=== PATIENT | female | born 1990 | race Caucasian/White ===

== ENCOUNTER 2022-10-02 08:00 | Outpatient (RCR) | payer MEDICAID, SELFPAY ==
--- NOTE | 2022-08-28 12:07 | OT.OPOE ---
OT Outpatient Ortho Eval OT Outpatient Ortho Eval Start: 08/28/22 11:20 Freq: Status: Active Protocol: Document 08/28/22 11:20 LCN (Rec: 08/28/22 11:59 LCN [id number]) E-signed By Deepali Bunn, OTR/L, CLT OT OP Ortho Eval Details Type Type Eval Complexity Low Insurance Information Insurance Information Medicaid Insurance Information Comments w U Care Outpatient History/Precautions Current Condition/Medical Diagnosis Referring Provider Sherri Jose PA-C Treatment Diagnosis B carpal tunnel syndrome with B wrist pain. L side more affected. Date of Onset 07/31/22 Medical Conditions Depression Other Conditions Anxiety, ADD, dyslipidemia, vag delivery, loss 2017. Obesity, LIO. No prior history of MVA or UE trauma. NO CTS during . Pt has oral medication to address posterior ocular edema with [facility] Dr Valdovinos (Pseudo Tumor Pupiloedema ) EMG of B UE completed at [facility] 07/12/22 with B medial nerve conduction for B UE. Displays entexted nerve reactivity to L median nerve peak latency. L UE EMG WNL. 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 Lives with 3 y/o son as single parent. (son is 35-40#) Mom lives with her, works as ethnology teacher in [employer]. 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 Used to have horses Fitness limited time, no regular regiemen Oriented Mental Status Comments Currently well managed with CHARANJIT, ADD, depression. Ortho Subjective Subjective Subjective mAara Calvo in an active, hard working 32 y/o female who has been struggling with neewer hand tingling since 6 months ago that was intermittent until the last 2 months, now daily. Evening are harder than am's and L side is more affected than R. Symptoms are somewhat better after changing clients, requiring less heavy lifting. Pain Assessment Pain Present Pain Present Pain Reported Location R wrist Description Dull, Achy,Cramping,Heaviness Intensity 1 L wrist Description Dull, Achy,Cramping,Heaviness Intensity 3 Goniometric Comments Goniometric Comments Goniometric Comments Posture-- Head forward w tightness, trigger points at B SCM, scalenes and upper trap hyperkyphotic at thoracic spine and lacking lumbar/ cervical lordosis. Thickness , congestion, poor skin mobility for B flexor muscle bulk. Cold hands, finger tips, resting in hooked flexion position. Very sensitive to cold in hands. Strong wide shoulder morphology. AROM-- Cerv EX to 40 of 80 ( lacking thoracic extension). Cerv fl to 50 of 60, pulling at T4 per myofascial thickness . Lateral flexion to 35 of 45 B, Rotation to 62 R and 75 L. Wrist EX to 77 of 80 R and 70 of 80 L. WR FL to [address] to 15 of 25 R, L 22 of 25. ( pn at 2/3rd MCP B). UD to 45 of 45 R and 42 of 45 L ( Tender at [employer]). Tight intrinsics during hook and table top positions. MMT -- B SH FL/ ABD/ER /IR, biceps/triceps/ WR FL/ WR EX all 5/5 B. 4+/5 resisted supination 4+/5 L. Lacking 15 degrees supination B, thick forearm bulk bulk. Spiritual Minister is 70# R and 60# L. (BNL by .5 SD L, where 68-78# is WNL) Beck pinch is 20# R and 21# L. 3 pt is 17# B Pinch planes are WNL. OT Objective Data Hand Hand Dominance Right Upper Extremity Special Tests Wrist Durkan's Test Positive Left,Positive Right Median Nerve-Carpal Tunnel Wrist Phalen Test Negative Left,Negative Right Wrist Tinel Test left Upper Extremity Special Tests Comments Comments 08/28/22-- Durkan's (+) at IF/ MF medial RF at 15 seconds, taking 20-30 to recover B. OT Problems Problems Problems Decreased Fine Motor,Lifting, Gripping,Pinching Other Problems Writing,Opening Containers, Dressing,Fasteners Patient Potential Excellent Assessment Assessment Assessment Given Amara's diagnosis of B mild carpal tunnel syndrome, she has postural and soft tissue changes, ?difficulty with edema, pain, ROM and strength loss of B hand/wrists and she would benefit from skilled OT to address these areas. Occupational Therapy Treatment Plan - OP Potential Rehabilitation Potential Excellent Set Goals Goals Set with Patient Yes Goals Goals In 8-10 weeks, Amara will demonstrate:? 1) Decreased pn to <2/10 80% of the time with sustained gripping, carrying groceries, pulling on socks, dressing/ bathing son. 2) I HEP for stretching, gradual strengthening and self mgmt strategies. 3) improved B qa consultant strength to 70# and pinch to 18# with B wrist pain < 1/10. 4)??Pt to be fit with functional bracing (for wrist) and use adaptive strategies to protect joint integrity to support less pain with ADL. Target Date 11/24/22 Progress set Treatment Plan Treatment Plan Evaluation,Edema Control, Iontophoresis,Joint Mobilization,Manual Therapy, Splinting,Ultrasound, Therapeutic Exercise,Self-Care /Home Management Expected Frequency 1-2x Week Expected Duration 8-10 Weeks Comment Summary Teach cervical posture - reducation, joint mechanics. Get new L splint. Certification Certification I Certify That: Therapy Services Provided, Therapy Plan Established, Therapy Plan Reviewed Recertification Information Recertification Information Initial Certification Date 08/28/22 Recertification Due Date 11/24/22 Provider Signature Shows Agreement With POC & Medical Necessity Physician Comment/Change Comment or Changes Physician NPI Number #
== END 2022-10-14 08:19 | disposition home or self-care (01) ==
PROVIDERS: PCP Family Medicine; Visit Provider Physician Assistant
DX: G56.03 Carpal tunnel syndrome, bilateral upper limbs (principal); M25.532 Pain in left wrist; M25.531 Pain in right wrist; Z51.89 Encounter for other specified aftercare
CPT/HCPCS: 97033; 97035; 97140; 97165; 97535

== ENCOUNTER 2022-12-16 09:22 | Outpatient (CLI) | payer MEDICAID, SELFPAY | END 2022-12-16 09:23 | disposition home or self-care (01) | LOC: NFLDREF 12:20 | PROVIDERS: PCP Family Medicine; Referring Provider Family Medicine; Visit Provider Family Medicine | DX: R53.83 Other fatigue (principal); E66.9 Obesity, unspecified; G93.2 Benign intracranial hypertension; E78.5 Hyperlipidemia, unspecified; E55.9 Vitamin D deficiency, unspecified; F32.A Depression, unspecified | CPT/HCPCS: 80053; 80061; 82306; 82607 ==

== ENCOUNTER 2023-12-10 08:00 | Outpatient (CLI) | payer MEDICAID, SELFPAY ==
--- OUTSIDE RECORDS SUMMARY | 2023-12-14 10:44 | XMS_ITS | Encounter Summary ---
Author Organization [facility] Address [address] [place] [address]. [place] [address] Care Team Providers Care Director Of Professional Services Name Role Phone Sheri Vargas Primary Care Provider Unav Luis Felipe Perrin MD Unavailable [phone] Luis Felipe Valdovinos MD Unavailable [phone] Yadira Rolon MD Primary Care Provider + Encounter Details Date Type Department Care Team (Late st Contact Info) Description 04/13/2021 [facility] [address] [place] [address] S[facility] Social History Tobacco Use Types Packs/Day Years Used Date Smoking Tobacco: Every Day Smokeless Tobacco: Never Alcohol Use Standard Drinks/Week Comments No 0 (1 standard drink = 0.6 oz pur e alcohol) PHQ-2 Answer Date Recorded PHQ-2 Score 0 03/09/2020 Sex and Gender Information Value Date Recorded Sex Assigned at Not on file Gender Identity Not on file Sexual Orientation Not on file documented as of this encounter Plan of Treatment Not on file documented as of this encounter Visit Diagnoses Not on filedocumented in this encounter Care Teams Director Of Professional Services Relationship Specialty Start Date End Date Sheri Vargas PCP - General 04/23/12 08/14/22 Yadira Rolon MD [facility] & [address] [id number] PCP - General 08/15/22 Luis Felipe Valdovinos MD [address] [place], [place] [phone] Assigned Surgical Provider 04/28/20 Luis Felipe Valdovinos MD [address] [place], [place] [phone] Assigned Surgical Provider 12/29/21 documented as of this encounter
--- OUTSIDE RECORDS SUMMARY | 2023-12-14 10:44 | XMS_ITS | Encounter Summary ---
Author Organization [facility] Address [address] [place] [address]. [place] [address] Care Team Providers Care Cath Lab Nurse Name Role Phone Sheri Vargas Primary Care Provider Mireyav Luis Felipe Perrin MD Unavailable [phone] Luis Felipe Valdovinos MD Unavailable [phone] Yadira Rolon MD Primary Care Provider + Encounter Details Date Type Department Care Team (Late st Contact Info) Description 06/03/2012 Office Visit-P INTERFACE P DEPT Luis Felipe Valdovinos MD [address] [place] [address] Social History Tobacco Use Types Packs/Day Years Used Date Smoking Tobacco: Every Day Alcohol Use Standard Drinks/Week Comments No 0 (1 standard drink = 0.6 oz pur e alcohol) Sex and Gender Information Value Date Recorded Sex Assigned at Not on file Gender Identity Not on file Sexual Orientation Not on file documented as of this encounter Progress Notes * Luis Felipe Valdovinos MD - 06/03/2012 7:30 AM CST Construction Executive: Luis Felipe Valdovinos Status: Final - Signature Encounter: 2012-06-03 07:30:00.000 Type: EYE Letter June 03, 2012 Antonio Riley, [facility] [address] [facility], [place] [address] RE: Amara Calvo : 1990 DOS: 06/03/[address] Riley: Amara Calvo returned for Neuro-ophthalmic follow up. Her MRI and MRV were normal. Her lumbar puncture showed an opening pressure of 39, normal being less than 20. The constituents were normal. She now carries a diagnosis of pseudotumor cerebri. Her visual menjivar are normal. I am going to start her on Diamox 500 milligrams twice a day. I am going to ask her to lose weight if she is able. I am going to have her follow up in three to four months. I would like to thank you again for allowing me to share in her care. Sincerely, Luis Felipe Valdovinos M.D. Professor Neuro-ophthalmology Service MSL:paul cc: Sheri Vargas MD [address] [id number] Electronically signed by:Luis Felipe Valdovinos M.D. Jun 03 2012 10:08AM BARREL PLATER EL PLATER documented in this encounter Plan of Treatment Not on file documented as of this encounter Visit Diagnoses Not on filedocumented in this encounter Care Teams Cath Lab Nurse Relationship Specialty Start Date End Date Sheri Vargas PCP - General 04/23/12 08/14/22 Yadira Rolon MD [facility] & [address] [address] PCP - General 08/15/22 Luis Felipe Valdovinos MD [address] [place] [address] Assigned Surgical Provider 04/28/20 Luis Felipe Valdovinos MD [address] [place] [address] Assigned Surgical Provider 12/29/21 documented as of this encounter
--- OUTSIDE RECORDS SUMMARY | 2023-12-14 10:44 | XMS_ITS | Encounter Summary ---
Author Organization [facility] Address [address] [place] [address]. [place] [address] Care Team Providers Care Carton Stamper Name Role Phone Sheri Vargas Primary Care Provider Luis Felipe Rutledge MD Unavailable [phone] Luis Felipe Valdovinos MD Unavailable [phone] Yadira Rolon MD Primary Care Provider + Encounter Details Date Type Department Care Team (Late st Contact Info) Description 05/20/2013 Office Visit-[facility] INTERFACE [facility] DEPT Unknown, Provider Social History Tobacco Use Types Packs/Day Years Used Date Smoking Tobacco: Every Day Alcohol Use Standard Drinks/Week Comments No 0 (1 standard drink = 0.6 oz pur e alcohol) Sex and Gender Information Value Date Recorded Sex Assigned at Not on file Gender Identity Not on file Sexual Orientation Not on file documented as of this encounter Progress Notes * Unknown, Provider - 05/20/2013 9:00 AM CST Print Color Operator: Josh Trimble Status: Final Encounter: 2013-05-20 09:00:00.000 Type: Rooming Note Reason For Visit SHARON THURMAN is a 22 year old female being seen in clinic for Here to follow up on IIH Do you have any other appointments, tests or procedures within the [facility] system for this same day? No. Pain Eval Current history of pain associated with this visit is denied. Personal Hx Behavioral history: Tobacco use. Home environment: Secondhand tobacco smoke in home. Allergies No Known Allergies No Known Drug Allergy. Current Meds Med list offered and patient declined. Zoloft 100 MG Tablet;TAKE 1.5 TABLET DAILY; RPT Vitamin D 1000 UNIT Capsule;TAKE 1 CAPSULE DAILY; RPT Diamox Sequels 500 MG Capsule Extended Release 12 Hour;TAKE 1 CAPSULE TWICE DAILY.; RPT AAA-MED RECONCILE;per patient; RPT AAA-MED RECONCILE;; RPT. Signature Signed By: Josh Trimble ; 05/20/2013 9:19 AM [employer] HELICOPTER PILOT. HELICOPTER PILOT documented in this encounter Plan of Treatment Not on file documented as of this encounter Visit Diagnoses Not on filedocumented in this encounter Care Teams Carton Stamper Relationship Specialty Start Date End Date Sheri Vargas PCP - General 04/23/12 08/14/[address] [facility] & [address] [address] PCP - General 08/15/22 Luis Felipe Valdovinos MD [address] [place] [address] [id number] Assigned Surgical Provider 04/28/20 Luis Felipe Valdovinos MD [address] [place] [address] [phone] Assigned Surgical Provider 12/29/21 documented as of this encounter
--- OUTSIDE RECORDS SUMMARY | 2023-12-14 10:44 | XMS_ITS | Encounter Summary ---
Author Organization [facility] Address [facility] [place] [address] Care Team Providers Care Crystal Attacher Name Role Phone Sheri Vargas Primary Care Provider Luis Felipe Rutledge MD Unavailable [phone] Luis Felipe Valdovinos MD Unavailable [phone] Yadira Rolon MD Primary Care Provider + Encounter Details Date Type Department Care Team (Late st Contact Info) Description 06/03/2012 Office Visit-[facility] INTERFACE [facility] DEPT Unknown, Provider [...] encounter Progress Notes * Unknown, Provider - 06/03/2012 7:30 AM CST Telephone Solicitor Supervisor: Daysi Sahu Status: Final Encounter: 2012-06-03 07:30:00.000 Type: Rooming Note Reason For Visit SHARON THURMAN is a 21 year old female being seen in clinic for follow up of bilateral optic disc edema. Do you have any other appointments, tests or procedures within the [facility] system for this same day? No. Pain Eval Current history of pain associated with this visit is denied. Personal Hx Behavioral history: Tobacco use. Allergies No Known Allergies No Known Drug Allergy. Current Meds Med list offered and patient declined. Zoloft 100 MG Tablet;TAKE 1.5 TABLET DAILY; RPT Vitamin D 1000 UNIT Capsule;TAKE 1 CAPSULE DAILY; RPT AAA-MED RECONCILE;per patient; RPT. Med list offered and patient declined. Signature Signed By: Daysi Sahu ; 06/03/2012 7:50 AM NURSING CARE ATTENDANT. ING CARE ATTENDANT documented in this encounter Plan of Treatment Not on file documented as of this encounter Visit Diagnoses Not on filedocumented in this encounter Care Teams Crystal Attacher Relationship Specialty Start Date End Date Sheri Vargas PCP - General 04/23/12 08/14/22 Yadira Rolon MD [facility] & [address] [address] PCP - General 08/15/22 Luis Felipe Valdovinos MD [address] [place] [address] Assigned Surgical Provider 04/28/20 Luis Felipe Valdovinos MD [address] [place] [address] [id number] Assigned Surgical Provider 12/29/21 documented as of this encounter
--- OUTSIDE RECORDS SUMMARY | 2023-12-14 10:44 | XMS_ITS | Encounter Summary ---
Author Organization [facility] Address [address] [place] [address]. [place] [address] Care Team Providers Care Property Site Manager Name Role Phone Luis Felipe Valdovinos MD Unavailable [phone] Yadira Rolon MD Primary Care Provider + Encounter Details Date Type Department Care Team (Late st Contact Info) Description 02/21/2023 [facility] [address] [place] [phone] [facility] Social History Tobacco Use Types Packs/Day Years Used Date Smoking Tobacco: Every Day Smokeless Tobacco: Never Alcohol Use Standard Drinks/Week Comments No 0 (1 standard drink = 0.6 oz pur e alcohol) PHQ-2 Answer Date Recorded PHQ-2 Score 2 08/22/2022 Sex and Gender Information Value Date Recorded Sex Assigned at Not on file Gender Identity Not on file Sexual Orientation Not on file COVID-19 Exposure Response Date Recorded In the last 10 days, have yo u been in contact with someone who was confirmed or suspected to have Coronavirus/COVID-19? No / Unsure 02/20/2023 8:46 AM CDT documented as of this encounter Plan of Treatment Not on file documented as of this encounter Visit Diagnoses Not on filedocumented in this encounter Care Teams Property Site Manager Relationship Specialty Start Date End Date Yadira Rolon MD [facility] & [facility] [address] [place] [address] PCP - General 08/15/22 Luis Felipe Valdovinos MD [address] [place] [address] Assigned Surgical Provider 12/29/21 documented as of this encounter
--- OUTSIDE RECORDS SUMMARY | 2023-12-14 10:44 | XMS_ITS | Encounter Summary ---
Author Organization [facility] Address [address] [place] [address]. [place] [address] Care Team Providers Care Lead Systems Developer Name Role Phone Sheri Vargas Primary Care Provider Luis Felipe Rutledge MD Unavailable [phone] Luis Felipe Valdovinos MD Unavailable [phone] Yadira Rolon MD Primary Care Provider + Reason for Visit * Reason Comments Medication Refill ACETAZOLAMIDE ER 500 MG CP12 Encounter Details Date Type Department Care Team (Late st Contact Info) Description 04/05/2021 Refill [facility] [address] [address] [place] [phone] Luis Felipe Valdovinos MD [address] [place] [phone] Medication Refill (ACETAZOLAMIDE ER 500MG CP12) Social History Tobacco Use Types Packs/Day Years [...] on file documented as of this encounter Miscellaneous Notes * Telephone Encounter - Aby Thompson RN - 04/06/2021 6:10 AM CDT ACETAZOLAMIDE ER 500MG CP12 Last Written Prescription Date: 03/09/2020 Last Fill Quantity: 180, # refills: 3 Last Office Visit : 03/09/2020 Future Office visit: None ?? Luis Felipe Valdovinos MD Ophthalmology It is my impression that her idiopathic intracranial hypertension is well controlled on Diamox 500mg BID. She does not appear to have true disc edema. It appears that it would not be possible for herto get off Diamox unless she loses a significant amount of weight. I would recommend continueing Diamox 500 mg twice a day. Follow up in 1 year or sooner as needed for worsening symptoms. Routing refill request to provider for review/approval because: Office visit due 90 day lexy sent to pharm Clinic/Pt notified Aby Thompson RN Central Triage Red Flags/Med Refills documented in this encounter Plan of Treatment Not on file documented as of this encounter Visit Diagnoses Diagnosis Idiopathic intracranial hypertension- Primary Benign intracranial hypertension documented in this encounter Care Teams Lead Systems Developer Relationship Specialty Start Date End Date Sheri Vargas PCP - General 04/23/12 08/14/22 Yadira Rolon MD [facility] & [address] [address] PCP - General 08/15/22 Luis Felipe Valdovinos MD [address] [place] [address] Assigned Surgical Provider 04/28/20 Luis Felipe Valdovinos MD [address] [place] [id number] Assigned Surgical Provider 12/29/21 documented as of this encounter
--- OUTSIDE RECORDS SUMMARY | 2023-12-14 10:44 | XMS_ITS | Clinical Summary ---
Author Organization [facility] Address [address] [place] [address]. [place] [address] Care Team Providers Care Park Recreation Manager Name Role Phone Luis Felipe Valdovinos MD Unavailable [phone] Yadira Rolon MD Primary Care Provider + Allergies No known active allergies Medications Medication Sig Dispensed Refills Start Date End Date Status VITAMIN D, CHOLECALCIFEROL, PO Take 4,000 Units by mouth daily Active BUSPIRONE HCL PO Active acetaZOLAMIDE (DIAMOX) 250 MG tablet Take 500 mg by mouth Active acetaZOLAMIDE (DIAMOX SEQUEL) 500 MG 12 hr capsuleIndications:Id iopathic intracranial hypertension,Optic disc edema Take 1 capsule (500 mg) by mouth 2 times daily 60 capsule 11 06/17/2019 Active sertraline (ZOLOFT) 50 MG tablet 02/06/2020 Active acetaZOLAMIDE (DIAMOX SEQUEL) 500 MG 12 hr capsuleIndications:Ot her disorders of optic disc, bilateral,Idiopathic intracranial hypertension Take 1 capsule (500 mg) by mouth 2 times daily 180 capsule 3 03/09/2020 Active acetaZOLAMIDE (DIAMOX SEQUEL) 500 MG 12 hr capsuleIndications:Id iopathic intracranial hypertension Take 1 capsule (500 mg) by mouth 2 times daily 180 capsule 3 06/14/2021 Active venlafaxine (EFFEXOR XR) 150 MG 24 hr capsule 09/05/2019 Active vitamin D3 (CHOLECALCIFEROL) 50 mcg (2000 units) tablet 10/05/2021 Active methylphenidate (RITALIN) 10 MG tablet Take 1 tablet by mouth 2 times daily 2022 Active acetaZOLAMIDE (DIAMOX SEQUEL) 500 MG 12 hr capsuleIndications:Id iopathic intracranial hypertension Take 1 capsule (500 mg) by mouth 2 times daily - Oral 180 capsule 10/30/2022 Active acetaZOLAMIDE (DIAMOX SEQUEL) 500 MG 12 hr capsuleIndications:Ot her disorders of optic disc, bilateral,Idiopathic intracranial hypertension,BMI 37.0-37.9, adult Take 1 capsule (500 mg) by mouth 2 times daily 180 capsule 3 02/20/2023 Active Active Problems Problem Noted Date Diagnosed Date Idiopathic intracranial hypertension 11/03/2013 Family History Medical History Relation Comments Cancer Father Glaucoma Other 1 grandfather Eye Disorder Other 2 cataracts/grandf ather Cancer Other 3 grandmother C.A.D. Other 4 grandfather Relation Status Comments Father Other 1 Other 2 Other 3 Other 4 Social History Tobacco Use Types Packs/Day Years Used Date Smoking Tobacco: Every Day Smokeless Tobacco: Never Alcohol Use Standard Drinks/Week Comments No 0 (1 standard drink = 0.6 oz pur e alcohol) PHQ-2 Answer Date Recorded PHQ-2 Score 2 08/22/2022 Adolescent Education Answer Date Record ed Getting School Help Needed Not on file 03/28 Sex and Gender Information Value Date Recorded Sex Assigned at Not on file Gender Identity Not on file Sexual Orientation Not on file Last Filed Vital Signs Vital Sign Reading Time Taken Comments Blood Pressure 120/60 05/15/2012 10:30 AM COAL TRIMMER MACHINE OPERATOR Pulse - - Temperature 35.9 ??C (96.6 ??F) 05/15/2012 7:35 AM CS T Respiratory Rate 16 05/15/2012 10:30 AM COAL TRIMMER MACHINE OPERATOR Oxygen Saturation 100% 05/15/2012 10:30 AM COAL TRIMMER MACHINE OPERATOR Inhaled Oxygen Concentration - - Weight 106.6 kg (235 lb) 05/15/2012 7:35 AM COAL TRIMMER MACHINE OPERATOR Height 162.6 cm (5' 4) 05/15/2012 7:35 AM COAL TRIMMER MACHINE OPERATOR Body Mass Index 40.34 05/15/2012 7:35 AM COAL TRIMMER MACHINE OPERATOR Plan of Treatment Health Maintenance Due Date Last Done Comments ADVANCE CARE PLANNING 1990 ANNUAL REVIEW OF HM ORDERS 1990 NICOTINE/TOBACCO CESSATION COUNSELING Q 1 YR 1992 YEARLY PREVENTIVE VISIT 1992 HIV SCREENING 2007 HEPATITIS C SCREENING 2010 COVID-19 Vaccine ( season) 2023 12/07/2020, 11/18/2020 PHQ-2 (once per calendar year) 2023 08/22/2022, 03/09/2020 Pneumococcal Vaccine: Pediatrics (0 to 5 Years) and At-Risk Patients (6 to 64 Years) (2 of 2 - PCV) 12/20/2023 12/19/2022 INFLUENZA VACCINE (Season Ended) 2024 04/15/2022, 05/11/2021, 05/18/2020, Additional history exists PAP 12/19/2025 12/19/2022, 12/19/2022 DTAP/TDAP/TD IMMUNIZATION (8 - Td or Tdap) 06/22/2029 06/22/2019, 12/30/2012, 02/20/2005, Additional history exists HEPATITIS B IMMUNIZATION Completed 994, 08/17/1993, 02/12/1993, Additional history exists IPV IMMUNIZATION Completed 09/13/1997, 04/1998, 11/21/1993, Additional history exists MENINGITIS IMMUNIZATION Aged Out 02/20/2005 No l onger eligible based on patient's age to complete this topic HPV IMMUNIZATION Completed 07/27/2007, , 12/23/2006 RSV MONOCLONAL ANTIBODY Aged Out No l onger eligible based on patient's age to complete this topic Care Teams Park Recreation Manager Relationship Specialty Start Date End Date Yadira Rolon MD [facility] [address] [place] [address] PCP - General 08/15/22 Luis Felipe Valdovinos MD [address] [place] [phone] Assigned Surgical Provider 12/29/21
--- OUTSIDE RECORDS SUMMARY | 2023-12-14 10:44 | XMS_ITS | Encounter Summary ---
Author Organization [facility] Address [address] [place] [address]. [place] [address] Care Team Providers Care Aircraft Inspection Record Clerk Name Role Phone Sheri Vargas Primary Care Provider Unav Luis Felipe Perrin MD Unavailable [phone] Luis Felipe Valdovinos MD Unavailable [phone] Yadira Rolon MD Primary Care Provider + Encounter Details Date Type Department Care Team (Late st Contact Info) Description 05/26/2012 Office Visit-P INTERFACE P DEPT Luis Felipe Valdovinos MD [address] [place] [address] Social History Tobacco Use Types [...] Notes * Luis Felipe Valdovinos MD - 05/26/2012 1:25 PM CST Metal Rivet Machine Operator: Luis Felipe Valdovinos Status: Signed Encounter: 2012-05-26 13:25:00.000 Type: Chart Note Recorded as Task Date: 05/20/2012 11:01 AM, Created By: Luis Felipe Valdovinos Task Name: Call Patient Assigned To: Vicky Brady Regarding Patient: SHARON THURMAN, Status: In Progress Comment: Luis Felipe Valdovinos - 20 May 2012 11:01 AM TASK CREATED can you tell her LP showed high pressure. she has pseudotumor. one of the helpful things is weight loss in making this go away. can i see her on 06/03 in the morning with v/t/hvf 24-2 quoc standard/d Vicky Brady - 22 May 2012 7:33 AM TASK IN PROGRESS Vicky Brady - 22 May 2012 7:34 AM TASK REASSIGNED: Previously Assigned To Vicky Brady [facility] on cell [phone] spoke with patient regarding alexei above Electronically signed by:Vicky Brady May 26 2012 1:25PM DICTAPHONE MECHANIC APHONE MECHANIC documented in this encounter Plan of Treatment Not on file documented as of this encounter Visit Diagnoses Not on filedocumented in this encounter Care Teams Aircraft Inspection Record Clerk Relationship Specialty Start Date End Date Sheri Vargas PCP - General 04/23/12 08/14/22 Yadira Rolon MD [facility] & [address] [address] PCP - General 08/15/22 Luis Felipe Valdovinos MD [address] [place] [id number] Assigned Surgical Provider 04/28/20 Luis Felipe Valdovinos MD [address] [place] [id number] Assigned Surgical Provider 12/29/21 documented as of this encounter
--- OUTSIDE RECORDS SUMMARY | 2023-12-14 10:44 | XMS_ITS | Encounter Summary ---
Author Organization [place] Address [facility] [place] [address] Care Team Providers Care Advertising Writer Name Role Phone Sheri Vargas Primary Care Provider Unav Luis Felipe Perrin MD Unavailable [phone] Luis Felipe Valdovinos MD Unavailable [phone] Yadira Rolon MD Primary Care Provider + Encounter Details Date Type Department Care Team (Late st Contact Info) Description 04/28/2012 Office Visit-P INTERFACE P DEPT Luis Felipe Valdovinos MD [address] [place], [place] [address] Social History Tobacco Use Types Packs/Day Years Used Date Smoking Tobacco: Never Assessed Sex and Gender Information Value Date Recorded Sex Assigned at Not on file Gender Identity Not on file Sexual Orientation Not on file documented as of this encounter Progress Notes * Luis Felipe Valdovinos MD - 04/28/2012 7:00 AM CDT Clinical Research Assistant: Luis Felipe Valdovinos Status: Final - Signature Encounter: 2012-04-28 07:00:00.000 Type: EYE Letter April 28, 2012 Antonio Riley, [facility] [address], [place] [address] RE: Amara Calvo : 1990 DOS: 04/28/[address] Riley: Thank you for asking me to see Amara Calvo in Neuro-ophthalmic consultation. I would like to thank you for sending your records and I will summarize them here. She presents with her mother who provides additional history. She is a 21-year-old who went to a diabetes conference with her mother. She had a picture taken at the conference and it was noted that she had swollen optic nerves. You had hercome into the office and performed a visual field which showed normal results. You also took more pictures which showed the persistent optic disc edema. She has had headaches which are new in the last six months. She denies an intracranial bruit. She denies transient visual obscurations. She deniesdouble vision. She is currently five foot four and weighs 230 pounds. EXAMINATION: Her visual acuity is 20/20 in each eye. Pupils are normal. Color vision is normal. Intraocular pressure is normal. There is no ptosis. Extraocular motility is full. Slit lamp examination is unremarkable. Fundus examination reveals grade three disc edema right eye, trace edema of the left eye. I didnot appreciate spontaneous venous pulsations. IMPRESSION: It is my impression that she has disc edema right eye greater than left. I am going to obtain an MRI and an MRV to rule out brain tumor and cerebral venous thrombosis If this is negative, then I willobtain a lumbar puncture with opening pressure. I understand that you took photographs, and I am wondering whether you would be willing to share those with me. They can be emailed to my secretary specialist at [email or web address]. I thank you for sending the visual menjivar and I had an opportunity to reveal those images personally and these were normal results in each eye. I would like to thank you again for allowing me to share in her care. Sincerely, Luis Felipe Valdovinos M.D. Professor Neuro-ophthalmology Service MSL:paul Electronically signed by:Luis Felipe Valdovinos M.D. Apr 29 2012 4:23PM SMASH PIECER documented in this encounter Plan of Treatment Not on file documented as of this encounter Visit Diagnoses Not on filedocumented in this encounter Care Teams Advertising Writer Relationship Specialty Start Date End Date Sheri Vargas PCP - General 04/23/12 08/14/22 Yadira Rolon MD [facility] & [address] [address] PCP - General 08/15/22 Luis Felipe Valdovinos MD [address] [place] [address] [id number] Assigned Surgical Provider 04/28/20 Luis Felipe Valdovinos MD [address] [place] [address] [phone] Assigned Surgical Provider 12/29/21 documented as of this encounter
--- OUTSIDE RECORDS SUMMARY | 2023-12-14 10:44 | XMS_ITS | Encounter Summary ---
Author Organization [facility] Address [address] [place] [address]. [place] [address] Care Team Providers Care Meat Scrubber Name Role Phone Sheri Vargas Primary Care Provider Mireyav Luis Felipe Perrin MD Unavailable [phone] Luis Felipe Valdovinos MD Unavailable [phone] Yadira Rolon MD Primary Care Provider + Encounter Details Date Type Department Care Team (Late st Contact Info) Description 05/22/2012 Office Visit-P INTERFACE P DEPT Luis Felipe Valdovinos MD [address] [place] [address] Social History Tobacco Use Types [...] Notes * Luis Felipe Valdovinos MD - 05/22/2012 7:32 AM CST Research Computing Specialist: Luis Felipe Valdovinos Status: Signed Encounter: 2012-05-22 07:32:00.000 Type: Chart Note Recorded as Task Date: 05/20/2012 11:01 AM, Created By: Luis Felipe Valdovinos Task Name: Call Patient Assigned To: Vicky Brady Regarding Patient: SHARON THURMAN, Status: Active Comment: Luis Felipe Valdovinos - 20 May 2012 11:01 AM TASK CREATED can you tell her LP showed high pressure. she has pseudotumor. one of the helpful things is weight loss in making this go away. can i see her on 06/03 in the morning with v/t/hvf 24-2 quoc standard/d Called pt on cell phone [phone] regarding tasked instructions. LVM for pt to call me back. Electronically signed by:Vicky Brady May 22 2012 7:33AM SILVICULTURE TEACHER ICULTURE TEACHER documented in this encounter Plan of Treatment Not on file documented as of this encounter Visit Diagnoses Not on filedocumented in this encounter Care Teams Meat Scrubber Relationship Specialty Start Date End Date Sheri Vargas PCP - General 04/23/12 08/14/22 Yadira Rolon MD [facility] & [address] [address] PCP - General 08/15/22 Luis Felipe Valdovinos MD [address] [place] [address] [phone] Assigned Surgical Provider 04/28/20 Luis Felipe Valdovinos MD [address] [place] [id number] Assigned Surgical Provider 12/29/21 documented as of this encounter
--- OUTSIDE RECORDS SUMMARY | 2023-12-14 10:44 | XMS_ITS | Referral Summary ---
Author Organization [place] Address [facility] [place] [address] Care Team Providers Care Accounts Supervisor Name Role Phone Luis Felipe Valdovinos MD Unavailable Yadira Rolon MD Primary Care Provider + [...] Date Diagnosed Date Idiopathic intracranial hypertension 11/03/2013 Social History Tobacco Use Types Packs/Day Years [...] Comments Blood Pressure 120/60 05/15/2012 10:30 AM CO FOUNDER AND PRESIDENT Pulse - - Temperature 35.9 ??C (96.6 ??F) 05/15/2012 7:35 AM CS T Respiratory Rate 16 05/15/2012 10:30 AM CO FOUNDER AND PRESIDENT Oxygen Saturation 100% 05/15/2012 10:30 AM CO FOUNDER AND PRESIDENT Inhaled Oxygen Concentration - - Weight 106.6 kg (235 lb) 05/15/2012 7:35 AM CO FOUNDER AND PRESIDENT Height 162.6 cm (5' 4) 05/15/2012 7:35 AM CO FOUNDER AND PRESIDENT Body Mass Index 40.34 05/15/2012 7:35 AM CO FOUNDER AND PRESIDENT Plan of Treatment Not on file Care Teams Accounts Supervisor Relationship Specialty Start Date End Date Yadira Rolon MD [facility] [address] [place] [address] PCP - General 08/15/22 Luis Felipe Valdovinos MD [address] [place] [address] Assigned Surgical Provider 12/29/21
--- OUTSIDE RECORDS SUMMARY | 2023-12-14 10:44 | XMS_ITS | Encounter Summary ---
Author Organization [facility] Address [address] [place] [address]. [place] [address] Care Team Providers Care Cutting Table Operator First Name Role Phone Sheri Vargas Primary Care Provider Luis Felipe Rutledge MD Unavailable Luis Felipe Valdovinos MD Unavailable [phone] Yadira Rolon MD Primary Care Provider + Encounter Details Date Type Department Care Team (Late st Contact Info) Description 09/14/2012 Office Visit-[facility] INTERFACE UMP DEPT Unknown, Provider [...] encounter Progress Notes * Unknown, Provider - 09/14/2012 2:30 PM CDT Tool Salvage Worker: Mary Cedillo Status: Final Encounter: 2012-09-14 14:30:00.000 Type: Rooming Note Reason For Visit SHARON THURMAN is a 22 year old female being seen in clinic for 3 month follow up IIH Do you have any other appointments, tests or procedures within the [facility] system for this same day? No. Pain Eval Current history of pain associated with this visit is denied. Personal Hx Behavioral history: Tobacco use. Home environment: No secondhand tobacco smoke in home. Allergies No Known Allergies No Known Drug Allergy. Current Meds Med list offered and patient declined. Zoloft 100 MG Tablet;TAKE 1.5 TABLET DAILY; RPT Vitamin D 1000 UNIT Capsule;TAKE 1 CAPSULE DAILY; RPT Diamox Sequels 500 MG Capsule Extended Release 12 Hour;TAKE 1 CAPSULE TWICE DAILY.; RPT AAA-MED RECONCILE;per patient; RPT. Signature Signed By: Mary NAVARRETE; 09/14/2012 2:27 PM RN CLINICAL COORDINATOR. documented in this encounter Plan of Treatment Not on file documented as of this encounter Visit Diagnoses Not on filedocumented in this encounter Care Teams Cutting Table Operator First Relationship Specialty Start Date End Date Sheri Vargas PCP - General 04/23/12 08/14/22 Yadira Rolon MD [facility] & [address] [address] PCP - General 08/15/22 Luis Felipe Valdovinos MD [address] [place] [id number] Assigned Surgical Provider 04/28/20 Luis Felipe Valdovinos MD [address] [place] [phone] Assigned Surgical Provider 12/29/21 documented as of this encounter
--- OUTSIDE RECORDS SUMMARY | 2023-12-14 10:44 | XMS_ITS | Encounter Summary ---
Author Organization [place] Address [facility] [place] [address] Care Team Providers Care Band Builder Name Role Phone Sheri Vargas Primary Care Provider Luis Felipe Rutledge MD Unavailable [phone] Luis Felipe Valdovinos MD Unavailable [phone] Yadira Rolon MD Primary Care Provider + Encounter Details Date Type Department Care Team (Late st Contact Info) Description 05/15/2012 Office Visit-P INTERFACE P DEPT Luis Felipe Valdovinos MD [address] [place] [address] Social History Tobacco Use Types [...] Notes * Luis Felipe Valdovinos MD - 05/15/2012 12:00 AM CST Brand Strategy Manager: Luis Felipe Valdovinos Status: Signed Encounter: 2012-05-15 00:00:00.000 Type: Chart Note lab called asking for the order for the testing done on the CSF for the lumbar puncture. There was no order for this testing in the chart that I saw. Lopez from Radiology stated that with Dr. Valdovinos's permission, I could fill out and sign the order. I confirmed the testing to be done per Dr. Valdovinos and Isigned the order VORB; verbal order read back and faxed to radiology. Electronically signed by:Gina Morgan May 15 2012 9:34AM ASSISTANT PRESS OPERATOR STANT PRESS OPERATOR documented in this encounter Plan of Treatment Not on file documented as of this encounter Visit Diagnoses Not on filedocumented in this encounter Care Teams Band Builder Relationship Specialty Start Date End Date Sheri Vargas PCP - General 04/23/12 08/14/22 Yadira Rolon MD [facility] & [address] [address] PCP - General 08/15/22 Luis Felipe Valdovinos MD [address] [place] [address] [phone] Assigned Surgical Provider 04/28/20 Luis Felipe Valdovinos MD [address] [place] [address] [phone] Assigned Surgical Provider 12/29/21 documented as of this encounter
--- OUTSIDE RECORDS SUMMARY | 2023-12-14 10:44 | XMS_ITS | Encounter Summary ---
Author Organization [facility] Address [address] [place] [address]. [place] [address] Care Team Providers Care Distribution Operations Manager Name Role Phone Sheri Vargas Primary Care Provider Luis Felipe Rutledge MD Unavailable [phone] Luis Felipe Valdovinos MD Unavailable Yadira Rolon MD Primary Care Provider + Encounter Details Date Type Department Care Team (Late st Contact Info) Description 01/14/2013 Office Visit-[facility] INTERFACE [facility] DEPT Unknown, Provider [...] encounter Progress Notes * Unknown, Provider - 01/14/2013 8:00 AM CDT Press Manager: Keven Betancourt Status: Final Encounter: 2013-01-14 08:00:00.000 Type: Rooming Note Reason For Visit SHARON THURMAN is a 22 year old female being seen in clinic for 4 month fu IIH Do you have any other appointments, tests or procedures within the [facility] system for this same day? No. Pain Eval Current history of pain associated with this visit is denied. Personal Hx Behavioral history: Tobacco use. Home environment: Secondhand tobacco smoke in home. Allergies No Known Allergies No Known Drug Allergy. Current Meds Med list offered and patient declined. AAA-MED RECONCILE;per patient; RPT Vitamin D 1000 UNIT Capsule;TAKE 1 CAPSULE DAILY; RPT Zoloft 100 MG Tablet;TAKE 1.5 TABLET DAILY; RPT Diamox Sequels 500 MG Capsule Extended Release 12 Hour;TAKE 1 CAPSULE TWICE DAILY.; RPT. Signature Signed By: Keven Betancourt ; 01/14/2013 11:12 AM WAREHOUSE LEAD. documented in this encounter Plan of Treatment Not on file documented as of this encounter Visit Diagnoses Not on filedocumented in this encounter Care Teams Distribution Operations Manager Relationship Specialty Start Date End Date Sheri Vargas PCP - General 04/23/12 08/14/22 Yadira Rolon MD [facility] & [address] [address] PCP - General 08/15/22 Luis Felipe Valdovinos MD [address] [place] [id number] Assigned Surgical Provider 04/28/20 Luis Felipe Valdovinos MD [address] [place] [phone] Assigned Surgical Provider 12/29/21 documented as of this encounter
== END 2023-12-10 08:01 | disposition home or self-care (01) ==
LOC: NFLDREF 12-14 10:42
PROVIDERS: PCP Family Medicine; Referring Provider Family Medicine; Visit Provider Family Medicine
DX: E78.5 Hyperlipidemia, unspecified (principal); E55.9 Vitamin D deficiency, unspecified; R53.83 Other fatigue; Z79.899 Other long term (current) drug therapy; Z13.21 Encounter for screening for nutritional disorder; Z13.29 Encounter for screening for other suspected endocrine disorder
CPT/HCPCS: 80053; 80061; 82607; 84443

== ENCOUNTER 2024-12-13 08:45 | Outpatient (CLI) | payer MEDICAID, SELFPAY | END 2024-12-13 08:46 | disposition home or self-care (01) | LOC: NFLDREF 15:30 | PROVIDERS: PCP Family Medicine; Referring Provider Family Medicine; Visit Provider Family Medicine | DX: E78.5 Hyperlipidemia, unspecified (principal); Z79.899 Other long term (current) drug therapy | CPT/HCPCS: 80053; 80061 ==